=== PATIENT | female | born 1950 | race Caucasian/White ===

== ENCOUNTER → 2016-05-07 | Outpatient (CLI) | payer MEDICARE ==
--- NOTE | 2016-05-07 20:43 | WWHP ---
DATE OF SERVICE: 05/07/2016. CHIEF COMPLAINT: The patient is here for her routine gynecologic exam. HPI: This is a 65-year-old G6, P4-0-2-4 with an LMP of 1996. The patient is without gynecologic complaints. She denies any postmenopausal bleeding. It has been about 3 years since her last pelvic exam. PAST MEDICAL HISTORY: Right breast cancer diagnosed in 10/2015. She is status post lumpectomy with radiation treatment. She currently does not have a primary care physician. Her breast surgeon is Dr. Jaiden Swan. She sees an oncologist at [facility]. MEDICATIONS: 1. Arimidex generic 1 daily. 2. Also vitamin C. 3. Vitamin B complex. 4. Vitamin D3 daily. ALLERGIES: SULFA WHICH CAUSED A RASH. PAST SURGICAL HISTORY: Left breast biopsy years ago and a right breast biopsy 2015 and right breast lumpectomy in 2015. She also had a laparotomy in 1980 for a benign left pelvic tumor and her right tube was also removed at that time. Hand surgery and bladder suspension surgery in the past, colonoscopy multiple times and the last one was approximately in 2010. Past OB history: 4 vaginal deliveries and 2 spontaneous abortions. 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 She briefly took HRT just for a few days, but this was discontinued. She has no history of STDs. SOCIAL HISTORY: She quit smoking in 2015 and denies alcohol use. She occasionally smoked marijuana many years ago. She denies any drug use currently. She is and her is Ed. She has several grandchildren and I delivered one of them. FAMILY HISTORY: Aunt had colon cancer, father had cirrhosis of the liver and an WA. Mother of a CVA and aunt had an WA. She has no family history of breast cancer. REVIEW OF SYSTEMS: She believes she has gained about 8 pounds since her radiation treatment. She denies respiratory, cardiac, or GI problems. She denies maltreatment or falling. She denies any significant urinary leakage. PHYSICAL EXAM: Blood pressure 118/71. Height 5 feet 2 inches. Weight 184 pounds. Temperature 98.3, pulse 73. This a well-developed, heavyset white female who is alert and oriented x3 in no acute distress. HEENT is within normal limits. NECK: Supple without mass or thyromegaly. CHEST AND LUNGS: Clear to auscultation. HEART: Regular rate and rhythm. Breasts are without mass or discharge. There is a lumpectomy scar in the outer aspect of the right breast. No masses or tenderness. There is no nipple inversion. Axillary exam is negative for adenopathy. BACK: Negative for CVA tenderness. ABDOMEN: Soft, nontender, without palpable masses. PELVIC EXAM: External genitalia reveals mild atrophy without lesions. Cervix and vagina reveal mild atrophy without lesions. There is no evidence of prolapse. The uterus is midposition, nongravid size and nontender. There are no palpable adnexal masses or tenderness. Rectovaginal exam is negative for mass or tenderness and is negative for occult blood. EXTREMITIES: Nontender. IMPRESSION: 1. A 65-year-old menopausal female with normal gynecologic exam. 2. History of recent right breast cancer with no evidence of recurrence. PLAN: 1. Pap smear was performed. 2. Self-breast examination was discussed. 3. Mammogram will be done next few months. This will be done through her breast cancer surgeon as she has been doing. She will have a copy of her and mammograms sent to me. 4. Osteoporosis prevention was discussed. She states she had a normal bone density test done in 2006 and she is scheduled for another one in July. 5. She will follow up breast surgeon and oncologist regarding her breast cancer and for future testing. 6. She will return in one year.
== END | disposition home or self-care (01) ==
LOC: WWCWWP 09:49
PROVIDERS: ATTEND Obstetrics & Gynecology

== ENCOUNTER → 2016-08-21 | Outpatient (CLI) | payer MEDICARE ==
--- NOTE | 2016-08-22 09:25 | MM ---
Reason for exam: follow-up at short interval from prior study. Last mammogram was performed 10 months ago. History: Patient is postmenopausal and has history of breast cancer at age 65. Family history of breast cancer in maternal cousin at age 50. Lumpectomy of the right breast, December 18, 2015. Radiation therapy of the right breast, 2015. Excisional biopsy of the left breast, 1990. Benign excisional biopsy of the left breast, 1989. Benign excisional biopsy of the right breast, 1989. Taking antineoplastic for 1 year. Physical Findings: Nurse did not find any significant physical abnormalities on exam. MG 3D Diag Mammo W/Cad VIKAS Bilateral CC and MLO view(s) were taken. Prior study comparison: November 20, 2015, right breast US breast workup limited RT. November 01, 2015, bilateral MG 3d screening mammo w/cad. July 31, 2010, mammogram, performed at [facility]. The breast tissue is heterogeneously dense. This may lower the sensitivity of mammography. Finding #1: There is a new architectural distortion in the upper outer quadrant of the right breast. Finding #2: There are typically benign dystrophic, round calcifications in both breasts. New skin thickening in the right breast. Previous mammotome biopsy in the left breast. There is no new dominant lesion. These results were verbally communicated with the patient and result sheet given to the patient on 08/21/16. ASSESSMENT: Probably benign, BI-RAD 3 RECOMMENDATION: Follow-up diagnostic mammogram of both breasts in 6 months. 2 years from new cancer diagnosis.
== END | disposition home or self-care (01) ==
LOC: RADMAMWWP 08:41
PROVIDERS: ATTEND Internal Medicine
DX: R92.8 Other abnormal and inconclusive findings on diagnostic imaging of breast (principal); Z98.890 Other specified postprocedural states
CPT/HCPCS: G0204; G0279

== ENCOUNTER 2016-10-09 16:29 | Emergency (ER) | payer MEDICARE ==
[2016-10-09] MEDS ORDERED: SODIUM CHLORIDE 0.9% 1,000 ML IV ONE (17:28)
[2016-10-09] MEDS ORDERED: ONDANSETRON 4 MG/2 ML VIAL IVP STA (17:29)
[2016-10-09] MEDS ORDERED: ACETAMINOPHEN TAB 500 MG TAB PO STA (17:30)
--- NOTE | 2016-10-09 17:47 | ED ---
General Adult HPI - General Chief complaint: Nausea/Vomiting/Diarrhea Stated complaint: Shingles Time Seen by Provider: 10/09/16 17:09 Source: patient, RN notes reviewed Mode of arrival: ambulatory Limitations: no limitations - History of Present Illness Initial comments: Patient is a 66-year-old female presents to the emergency room for evaluation of shingles rash, headache and nausea. Patient states she was diagnosed with shingles on Friday. Patient states she began taking Valtrex. Patient states she has shingles on the right anterior ribs under her breasts. Patient states that since taking the Valtrex she's been having a 5 out of 10 headache with nausea. Patient states she's been unable to eat anything today. Patient states she was diagnosed with right breast cancer back in December. Patient states she went through 21 rounds of radiation and is now taking Arimidex daily for the next 5 years. Patient states she thinks she might be ALLERGIC to the Valtrex. Patient also states she noticed a red rash over her right breast while sitting here. Patient denies any pruritus or pain from the rash. Patient states this rash is different from her shingles rash. - Related Data Home Medications Medication Instructions Recorded Confirmed Anastrozole [Arimidex] 1 mg PO QAM 10/09/16 10/09/16 valACYclovir HCL [Valtrex] 1,000 mg PO Q8HR 10/09/16 10/09/16 Previous Rx's Medication Instructions Recorded Cephalexin [Keflex] 500 mg PO Q6HR 7 Days 10/09/16 Ibuprofen [Motrin] 600 mg PO Q6HR PRN #20 tab 10/09/16 Ondansetron Odt [Zofran Odt] 4 mg PO Q8HR PRN #12 tab 10/09/16 Allergies Allergy/AdvReac Type Severity Reaction Status Date / Time Sulfa (Sulfonamide Allergy Rash/Hives Verified 10/09/16 16:34 Antibiotics) Review of Systems ROS Statement: Those systems with pertinent positive or pertinent negative responses have been documented in the HPI. ROS Other: All systems not noted in ROS Statement are negative. Past Medical History Past Medical History: Cancer Additional Past Medical History / Comment(s): right breast cancer History of Any Multi-Drug Resistant Organisms: None Reported Past Surgical History: Breast Surgery Additional Past Surgical History / Comment(s): hip surgery, hemrrhoids Past Psychological History: No Psychological Hx Reported Smoking Status: Current some day smoker Past Alcohol Use History: None Reported Past Drug Use History: None Reported General Exam - General Exam Comments Initial Comments: Laying in exam room, no acute distress. Limitations: no limitations General appearance: alert, in no apparent distress Head exam: Present: atraumatic, normocephalic, normal inspection Eye exam: Present: normal appearance ENT exam: Present: normal exam Neck exam: Present: normal inspection Respiratory exam: Present: normal lung sounds bilaterally. Absent: respiratory distress Cardiovascular Exam: Present: regular rate, normal rhythm, normal heart sounds GI/Abdominal exam: Present: soft, normal bowel sounds. Absent: distended, tenderness, guarding, rebound, rigid Extremities exam: Present: normal inspection Back exam: Present: normal inspection Neurological exam: Present: alert, oriented X3, CN II-XII intact, normal gait Psychiatric exam: Present: normal affect, normal mood Skin exam: Present: other (Grouped vesicular lesions over right anterior chest wall inferior to the right breast. Blanchable erythema over her right breast.) Course Vital Signs 10/09/16 10/09/16 10/09/16 16:31 18:43 19:27 Temperature 97.8 F 98.3 F 98.5 F Pulse Rate 84 71 79 Respiratory 20 18 18 Rate Blood Pressure 146/88 130/75 137/62 O2 Sat by Pulse 96 95 99 Oximetry Medical Decision Making - Medical Decision Making Patient is a 66-year-old female presents emergency room for evaluation. Patient is having ALLERGIC reaction to Valtrex due to shingles. Patient is noted to have shingles rash over right anterior chest wall. Patient advised to continue taking Valtrex. Patient advised to take Tylenol for headache and Zofran for nausea. Patient also noted to have some blanchable erythema over her right breast. Place patient on Keflex to cover for any developing cellulitis. Advised patient to follow-up with either her oncologist or primary care provider for reevaluation. Patient states she understands everything that was discussed with her. Return parameters discussed. Case discussed with Dr. Wilkes. - Lab Data Result diagrams: 10/09/16 17:41 10/09/16 17:41 Lab Results 10/09/16 10/09/16 Range/Units 17:41 17:41 WBC 2.8 L (3.8-10.6) k/uL RBC 4.94 (3.80-5.40) m/uL Hgb 15.8 (11.4-16.0) gm/dL Hct 43.7 (34.0-46.0) % MCV 88.3 (80.0-100.0) fL MCH 32.0 (25.0-35.0) pg MCHC 36.3 (31.0-37.0) g/dL RDW 12.4 (11.5-15.5) % Plt Count 150 (150-450) k/uL Neutrophils % (Manual) 53.0 % Lymphocytes % (Manual) 33.0 % Monocytes % (Manual) 14.0 % Neutrophils # (Manual) 1.5 (1.3-7.7) k/uL Lymphocytes # (Manual) 0.9 L (1.0-4.8) k/uL Monocytes # (Manual) 0.4 (0-1.0) k/uL Nucleated RBCs 0 (0-0) /100 WBC Sodium 140 (137-145) mmol/L Potassium 4.2 (3.5-5.1) mmol/L Chloride 105 (98-107) mmol/L Carbon Dioxide 25 (22-30) mmol/L Anion Gap 10 mmol/L BUN 12 (7-17) mg/dL Creatinine 0.60 (0.52-1.04) mg/dL Est GFR (MDRD) Af Amer >60 (>60 ml/min/1.73 sqM) Est GFR (MDRD) Non-Af >60 (>60 ml/min/1.73 sqM) Glucose 120 H (74-99) mg/dL Calcium 9.3 (8.4-10.2) mg/dL Total Bilirubin 0.8 (0.2-1.3) mg/dL AST 28 (14-36) U/L ALT 33 (9-52) U/L Alkaline Phosphatase 66 (38-126) U/L Total Protein 7.1 (6.3-8.2) g/dL Albumin 3.9 (3.5-5.0) g/dL Amylase 44 (30-110) U/L Lipase 139 (23-300) U/L Disposition Clinical Impression: Shingles rash, Medication reaction, Cellulitis of right breast Disposition: HOME SELF-CARE Condition: Good Instructions: Shingles (ED) Additional Instructions: Continue taking Valtrex as directed. Take tylenol or motrin as needed for headache. Take Zofran as needed for nausea. Take antibiotics as directed. Please follow up with primary care provider or oncologist for reevaluation in 24 -48 hours. If symptoms worsen or new symptoms develop, return to the emergency room. Prescriptions: Cephalexin [Keflex] 500 mg PO Q6HR 7 Days Ibuprofen [Motrin] 600 mg PO Q6HR PRN #20 tab PRN Reason: Pain Ondansetron Odt [Zofran Odt] 4 mg PO Q8HR PRN #12 tab PRN Reason: Nausea Referrals: None,Stated [Primary Care Provider] - 1-2 days Time of Disposition: 19:09
[2016-10-09 18:11] LABS: ALT 33 U/L (9-52); AST 28 U/L (14-36); Alkaline Phosphatase 66 U/L (38-126); Amylase 44 U/L (30-110); Anion Gap 10 mmol/L; Blood Urea Nitrogen 12 mg/dL (7-17); Calcium 9.3 mg/dL (8.4-10.2); Carbon Dioxide 25 mmol/L (22-30); Chloride 105 mmol/L (98-107); Glucose 120 mg/dL (74-99); Non-African American GFR(MDRD) >60 (>60 ml/min/1.73 sqM); Potassium 4.2 mmol/L (3.5-5.1); Sodium 140 mmol/L (137-145); Total Bilirubin 0.8 mg/dL (0.2-1.3); Total Protein 7.1 g/dL (6.3-8.2)
[2016-10-09 18:29] LABS: Aty Lym Flag Slight; CH 31.3; CHCM 35.6; HCT 43.7 % (34.0-46.0); HDW 2.52; HGB 15.8 gm/dL (11.4-16.0); MCHC 36.3 g/dL (31.0-37.0); MCV 88.3 fL (80.0-100.0); Mean Platelet Volume 7.1; RBC 4.94 m/uL (3.80-5.40); RDW 12.4 % (11.5-15.5); WBC 2.8 k/uL (3.8-10.6); WBC (Perox) 2.92
[2016-10-09 18:44] VITALS: RESP 18
[2016-10-09] MEDS ORDERED: IBUPROFEN 600 MG TAB PO STA (19:08)
[2016-10-09] MEDS ORDERED: CEPHALEXIN 500 MG CAP PO STA (19:08)
[2016-10-09 19:14] LABS: Add Differential Manual Differential
[2016-10-09 19:18] LABS: Nucleated Red Blood Cells 0 /100 WBC (0-0); Total Cells Counted 100
[2016-10-09 19:28] VITALS: BP 137/62; PULSE 79; TEMP 98.5
== END 2016-10-09 19:33 | disposition home or self-care (01) ==
LOC: EC 16:29
DX: N61.0 Mastitis without abscess (principal); R11.2 Nausea with vomiting, unspecified; R51 Headache; T37.5X5A Adverse effect of antiviral drugs, initial encounter; B02.9 Zoster without complications; F17.200 Nicotine dependence, unspecified, uncomplicated; Z85.3 Personal history of malignant neoplasm of breast; Z79.899 Other long term (current) drug therapy; Z88.2 Allergy status to sulfonamides
CPT/HCPCS: 36415; 80053; 82150; 83690; 85025; 99284; 96374; 96361 ×2; J2405

== ENCOUNTER → 2017-04-08 | Outpatient (CLI) | payer MEDICARE ==
--- NOTE | 2017-04-09 08:19 | WWHP ---
[facility] - HISTORY AND PHYSICAL DATE OF SERVICE: 04/08/2017 CHIEF COMPLAINT: The patient is here for her routine gynecologic exam. HPI: This is a 66-year-old, G6, P4-0-2-4 with an LMP of 1996. The patient is without gynecologic complaints and denies any postmenopausal bleeding. She did have an abnormal Pap smear on 05/07/16, which showed ASCUS and was negative for high- risk HPV. PAST MEDICAL HISTORY: Right breast cancer diagnosed in 10/2015 and she is status post lumpectomy with radiation treatment. She denies any other health issues. MEDICATIONS: 1. Arimidex generic 1 daily. 2. Vitamin C supplement daily. 3. Vitamin B complex daily. 4. Vitamin D3 daily. ALLERGIES: SULFA which caused a rash. PAST SURGICAL HISTORY: Unchanged from the 05/07/2016 H&P. 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 She used HRT briefly, but this was discontinued. She has no history of STDs. SOCIAL HISTORY: She quit smoking in 2015 and denies alcohol use. She used marijuana many years ago, but denies any current drug use. She is and her is Ed. She has several grandchildren and I delivered one of them. FAMILY HISTORY: Unchanged from the 05/07/2016 H&P. REVIEW OF SYSTEMS: She has gained 4 pounds over the last year. She denies respiratory, cardiac, or GI problems. She denies maltreatment or falling. : She denies any significant problems with urinary leakage. PHYSICAL EXAM: Blood pressure 119/78, height 5 feet 2 inches, weight 188 pounds, BMI 34, temperature 97.8, pulse 74. This is a well-developed, well-nourished, white female, who is alert and oriented x3, in no acute distress. HEENT is within normal limits. NECK: Supple without thyromegaly. CHEST AND LUNGS: Clear to auscultation. HEART: Regular rate and rhythm. Breasts are without mass or discharge. Axillary exam is negative for adenopathy. ABDOMEN: Soft, nontender, without palpable masses. PELVIC EXAM: External genitalia reveals mild atrophy without lesions. Cervix and vagina reveal mild atrophy without lesions. There is no evidence of prolapse. The uterus is mid position,nongravid size and nontender. There are no palpable adnexal masses or tenderness. Rectovaginal exam is negative for mass or tenderness and is negative for occult blood. EXTREMITIES: Nontender. IMPRESSION: 1. A 66-year-old menopausal female with normal gynecologic exam. 2. History of ASCUS Pap smear with negative high-risk HPV testing 1 year ago. 3. History of right breast cancer with no evidence of recurrence. PLAN: 1. Pap smear was deferred. We will plan on repeating Pap smear with HPV co- testing in 1 to 2 years as per ACOG recommendations. 2. Self breast examination was discussed. 3. Mammogram was done last month and was benign. She will repeat this in 1 year. 4. Osteoporosis prevention was discussed. 5. I have recommended that she establish with a primary care physician and she states she will do this in the near future. 6. She will return in 1 year. MMNAELL / CHAUNCEYN: [id number] / MTDD
== END | disposition home or self-care (01) ==
LOC: CANPRECLI → WWCWWP 13:19
PROVIDERS: ATTEND Obstetrics & Gynecology
DX: Z53.9 Procedure and treatment not carried out, unspecified reason (principal)

== ENCOUNTER → 2018-07-22 | Outpatient (CLI) | payer MEDICARE ==
[2018-07-22 11:10] VITALS: BP 115/79; PULSE 71; RESP 16; TEMP 98.4; BMI 34.2
--- NOTE | 2018-07-22 12:05 | P.HPOB ---
History of Present Illness H&P Date: 07/22/18 Chief Complaint: The patient is here for her routine gynecologic exam. This is a 67-year-old with an LMP of 1996. The patient is without gynecologic complaints and denies any postmenopausal bleeding. Her last Pap smear done on 05/07/2016 showed ascus and was negative for high-risk HPV. Review of Systems She has lost 7 pounds over the last year. She denies respiratory, cardiac and G.I. problems. She denies maltreatment or problems with falling. : she denies any significant problems with urinary leakage. Past Medical History Past Medical History: Cancer Additional Past Medical History / Comment(s): right breast cancer 2016 s/p lumpectomy and radiation. Arthritis. 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 History of Any Multi-Drug Resistant Organisms: None Reported Past Surgical History: Breast Surgery Additional Past Surgical History / Comment(s): hip surgery, hemrrhoids. Right breast lumpectomy 2015. Multiple breast biopsies. Laparotomy for a benign left pelvic mass with right salpingectomy. Bladder suspension surgery, hand surgery. Colonoscopy 2008 (multiple in past). Past Psychological History: No Psychological Hx Reported Smoking Status: Current some day smoker Past Alcohol Use History: None Reported Past Drug Use History: Marijuana Additional Drug Use History / Comment(s): Marijuana use many years ago. Denies any drug use at this time. Additional History: Quit smoking in 2015. She is and her is Ed. - Past Family History Father Family Medical History: Liver Disease, Myocardial Infarction ([place]) Additional Family Medical History / Comment(s): Liver cirrhosis Mother Family Medical History: CVA/TIA Additional Family Medical History / Comment(s): An aunt had cancer. Medications and Allergies Home Medications Medication Instructions Recorded Confirmed Type Anastrozole [Arimidex] 1 mg PO QAM 10/09/16 07/22/18 History Multivit with Calcium,Iron,Min 1 each PO DAILY 07/22/18 07/22/18 History [Women's Multivitamin] Allergies Allergy/AdvReac Type Severity Reaction Status Date / Time Sulfa (Sulfonamide Allergy Rash/Hives Verified 07/22/18 11:03 Antibiotics) Exam Vital Signs Temp Pulse Resp BP Pulse Ox 07/22/18 11:06 98.4 F 71 16 115/79 96 Intake and Output 07/21/18 07/22/18 07/22/18 22:59 06:59 14:59 Other: Weight 82.1 kg Height 5'1", weight 181 pounds, BMI 34.2. This is a well-developed well-nourished heavyset white female who is alert and oriented times 3 in no acute distress. HEENT: Within normal limits. NECK: Supple without mass or thyromegaly. CHEST AND LUNGS: Clear to auscultation. HEART: Regular rate and rhythm. BREASTS: Are without mass or discharge. There is a slight dimpled area at the 8 o'clock position of the right breast consistent with her previous lumpectomy. AXILLARY EXAM: Negative for adenopathy. BACK: Negative for CVA tenderness. ABDOMEN: Soft, mildly obese, nontender, without palpable masses. PELVIC EXAM: external genitalia reveals a 3 mm benign appearing inclusion cyst at the posterior aspect of the left labia majora. The patient states she has felt this here for several months. It is not inflamed and nontender. External genitalia is otherwise unremarkable other than mild atrophy. Cervix and vagina appear normal with mild atrophy. There is no unusual discharge. There is no evidence of prolapse. The uterus is midposition, nongravid size and nontender. There are no palpable adnexal masses or tenderness. RECTAL EXAM: rectovaginal exam is negative for mass or tenderness and is negative for occult blood. EXTREMITIES: Nontender. IMPRESSION: 1. 67-year-old menopausal female with Small benign appearing left labial inclusion cyst and otherwise normal gynecologic exam. 2. History of ascus Pap smear with negative high-risk HPV testing on 05/07/16. PLAN: 1. Pap smear with high-risk HPV testing (cotest) was obtained. 2. Self breast awareness was discussed with the patient. 3. Diagnostic mammograms will continue to be done through her breast cancer doctor at [facility], Dr. Newman. She states her last mammogram was done in March 2018. 4. Osteoporosis prevention was discussed. I have stressed the importance of adequate calcium, vitamin D and regular exercise. Recommended amounts of calcium and vitamin D were also discussed. She states she is scheduled for a bone density test later this year done through Dr. Newman. She will try to have copies of her bone density tests and mammogram sent to me. 5. I have recommended screening colonoscopy since it is been nearly 10 years. She states she will look into doing this. She will also be looking into getting a new primary care physician. 6.She was advised to return in one year for her annual well woman exam.
== END ==
LOC: WWCWWP 10:23
PROVIDERS: ATTEND Obstetrics & Gynecology
DX: Z53.9 Procedure and treatment not carried out, unspecified reason (principal)

== ENCOUNTER 2018-09-24 10:02 | Emergency (ER) | payer MEDICARE ==
--- NOTE | 2018-09-24 11:04 | ED ---
Extremity Problem HPI - General Chief complaint: Extremity Problem,Nontraumatic Stated complaint: Back/Leg Pain Time Seen by Provider: 09/24/18 10:08 Source: patient, EMS Mode of arrival: EMS Limitations: no limitations - History of Present Illness Initial comments: 68-year-old female history of breast cancer status post lumpectomy radiation she states she is on current medication for breast cancer but states she has been in remission for the past 3 years. Patient denies any additional past medical history. Patient denies recent surgeries. Patient states that for the past day she has had low back pain with radiation down the left leg. She states her struggles with sciatica and she feels this is the cause. Patient denies any recent falls or trauma to the back shows fever chills night sweats history of IV drug use. Patient denies any noted weakness of the left leg. She states it is painful with range of motion. Patient states last night she was unable to get into a comfortable position secondary to the pain in the lumbar spine and radiating down the left posterior thigh to the knee. Patient denies loss of bowel control, urinary retention, or loss of sensation of the lower extremity. Patient states she did have one episode of incontinence to urine because she was not able to physically make it to the bathroom on time. She states it was due to being slow secondary to pain. Remaining ROS (-). Upon arrival patient appears well. She states since she took 2 tylenol #3 and motrin she has not had the pain. - Related Data Home Medications Medication Instructions Recorded Confirmed Anastrozole [Arimidex] 1 mg PO QAM 10/09/16 09/24/18 Multivit with Calcium,Iron,Min 1 tab PO DAILY 07/22/18 09/24/18 [Women's Multivitamin] Ascorbic Acid [Vitamin C] 500 mg PO DAILY 09/24/18 09/24/18 Calcium Carbonate [Calcium] 600 mg PO DAILY 09/24/18 09/24/18 Cholecalciferol (Vitamin D3) 2,000 unit PO DAILY 09/24/18 09/24/18 [Vitamin D3] Magnesium Oxide [Mag-Ox] 400 mg PO HS 09/24/18 09/24/18 Previous Rx's Medication Instructions Recorded Cephalexin [Keflex] 500 mg PO Q12HR 7 Days #14 cap 09/24/18 Allergies Allergy/AdvReac Type Severity Reaction Status Date / Time Sulfa (Sulfonamide Allergy Rash/Hives Verified 09/24/18 10:14 Antibiotics) Review of Systems ROS Statement: Those systems with pertinent positive or pertinent negative responses have been documented in the HPI. ROS Other: All systems not noted in ROS Statement are negative. Past Medical History Past Medical History: Cancer Additional Past Medical History / Comment(s): right breast cancer 2016 s/p bernie mpectomy and radiation. Arthritis. 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 History of Any Multi-Drug Resistant Organisms: None Reported Past Surgical History: Breast Surgery Additional Past Surgical History / Comment(s): hip surgery, hemrrhoids. Right breast lumpectomy 2016. Multiple breast biopsies. Laparotomy for a benign left pelvic mass with right salpingectomy. Bladder suspension surgery, hand surgery. Colonoscopy 2008 (multiple in past). Past Psychological History: No Psychological Hx Reported Smoking Status: Current some day smoker Past Alcohol Use History: None Reported Past Drug Use History: Marijuana - Past Family History Father Family Medical History: Liver Disease, Myocardial Infarction ([place]) Additional Family Medical History / Comment(s): Liver cirrhosis Mother Family Medical History: CVA/TIA Additional Family Medical History / Comment(s): An aunt had cancer. General Exam - General Exam Comments Initial Comments: General: The patient is awake and alert, in no distress, and does not appear acutely ill. Eye: Pupils are equal, round and reactive to light, extra-ocular movements are intact. No nystagmus. There is normal conjunctiva bilaterally. No signs of icterus. Ears, nose, mouth and throat: There are moist mucous membranes and no oral lesions. Neck: The neck is supple, there is no tenderness or JVD. Cardiovascular: There is a regular rate and rhythm. No murmur, rub or gallop is appreciated. Respiratory: Lungs are clear to auscultation, respirations are non-labored, breath sounds are equal. No wheezes, stridor, rales, or rhonchi. Gastrointestinal: Soft, non-distended, non-tender abdomen without masses or organomegaly noted. There is no rebound or guarding present. Musculoskeletal: Upon inspection of the cervical thoracic and lumbar spine there is no known after maladies. Patient has no tenderness midline to the thoracic or lumbar spine. Patient does have bilateral straight leg raise positive. With the left being more than the right. Patient has full sensation of the lower extremity bilaterally including the saddle region with 5/5 strength. Patient is somewhat hesitant to strength testing left leg secondary to pain Normal ROM, no tenderness. DP pulses equal bilaterally 2+. Neurological: A&O x 3. CN II-XII intact, There are no obvious motor or sensory deficits. Coordination appears grossly intact. Speech is normal. Skin: Skin is warm and dry and no rashes or lesions are noted. Psychiatric: Cooperative, appropriate mood & affect, normal judgment. Limitations: no limitations Course Vital Signs 09/24/18 09/24/18 10:13 12:15 Temperature 98.4 F 99.4 F Pulse Rate 90 89 Respiratory 16 18 Rate Blood Pressure 101/69 112/56 O2 Sat by Pulse 95 95 Oximetry Medical Decision Making - Medical Decision Making 68-year-old female presenting for sharp pain radiating down left leg and low back pain history of breast cancer. No midline pain or complaints fever, chills, nightsweats. CT obtained given patient history revealing stenosis and degenerative changes. She shows no signs of cauda equina on examination nor history taking. Patient able to ambulate to ambulate patient to the bathroom she is able to ambulate independently with a cane. Patient did have urinalysis obtained revealing a urinary tract infection. Treated with ceftriaxone the emergency Department patient be discharged with antibiotics and outpatient primary care follow-up. I recommended outpatient MRI and follow-up with orthopedic surgery. Patient prefers discharge at this time. She states her pain is controlled. I discussed the case and reviewed imaging studies my attending provider Dr. Hawkins was agreeable care plan and discharge at this time. I recommended patient obtain records to review with primary care provider and go over incidental findings and ensure proper follow-up. Patient verbalized understanding and was discharged appearing well, after discussing return parameters. - Lab Data Result diagrams: 09/24/18 10:58 09/24/18 10:58 Lab Results 09/24/18 09/24/18 09/24/18 Range/Units 10:58 10:58 10:58 WBC 10.7 H (3.8-10.6) k/uL RBC 4.72 (3.80-5.40) m/uL Hgb 14.3 (11.4-16.0) gm/dL Hct 42.6 (34.0-46.0) % MCV 90.3 (80.0-100.0) fL MCH 30.2 (25.0-35.0) pg MCHC 33.4 (31.0-37.0) g/dL RDW 13.6 (11.5-15.5) % Plt Count 154 (150-450) k/uL Neutrophils % 88 % Lymphocytes % 5 % Monocytes % 4 % Eosinophils % 1 % Basophils % 0 % Neutrophils # 9.4 H (1.3-7.7) k/uL Lymphocytes # 0.6 L (1.0-4.8) k/uL Monocytes # 0.5 (0-1.0) k/uL Eosinophils # 0.1 (0-0.7) k/uL Basophils # 0.0 (0-0.2) k/uL PT (9.0-12.0) sec INR (<1.2) APTT (22.0-30.0) sec Sodium 137 (137-145) mmol/L Potassium 3.9 (3.5-5.1) mmol/L Chloride 106 (98-107) mmol/L Carbon Dioxide 24 (22-30) mmol/L Anion Gap 7 mmol/L BUN 22 H (7-17) mg/dL Creatinine 0.73 (0.52-1.04) mg/dL Est GFR (CKD-EPI)AfAm >90 (>60 ml/min/1.73 sqM) Est GFR (CKD-EPI)NonAf 84 (>60 ml/min/1.73 sqM) Glucose 139 H (74-99) mg/dL Plasma Lactic Acid Candido 1.5 (0.7-2.0) mmol/L Calcium 8.8 (8.4-10.2) mg/dL Total Bilirubin 1.1 (0.2-1.3) mg/dL AST 24 (14-36) U/L ALT 21 (9-52) U/L Alkaline Phosphatase 66 (38-126) U/L Total Protein 6.9 (6.3-8.2) g/dL Albumin 3.5 (3.5-5.0) g/dL Urine Color Urine Appearance (Clear) Urine pH (5.0-8.0) Ur Specific Stark (1.001-1.035) Urine Protein (Negative) Urine Glucose (UA) (Negative) Urine Ketones (Negative) Urine Blood (Negative) Urine Nitrite (Negative) Urine Bilirubin (Negative) Urine Urobilinogen (<2.0) mg/dL Ur Leukocyte Esterase (Negative) Urine RBC (0-5) /hpf Urine WBC (0-5) /hpf Ur Squamous Epith Cells (0-4) /hpf Urine Bacteria (None) /hpf Urine Mucus (None) /hpf 09/24/18 09/24/18 Range/Units 10:58 10:58 WBC (3.8-10.6) k/uL RBC (3.80-5.40) m/uL Hgb (11.4-16.0) gm/dL Hct (34.0-46.0) % MCV (80.0-100.0) fL MCH (25.0-35.0) pg MCHC (31.0-37.0) g/dL RDW (11.5-15.5) % Plt Count (150-450) k/uL Neutrophils % % Lymphocytes % % Monocytes % % Eosinophils % % Basophils % % Neutrophils # (1.3-7.7) k/uL Lymphocytes # (1.0-4.8) k/uL Monocytes # (0-1.0) k/uL Eosinophils # (0-0.7) k/uL Basophils # (0-0.2) k/uL PT 10.9 (9.0-12.0) sec INR 1.0 (<1.2) APTT 23.1 (22.0-30.0) sec Sodium (137-145) mmol/L Potassium (3.5-5.1) mmol/L Chloride (98-107) mmol/L Carbon Dioxide (22-30) mmol/L Anion Gap mmol/L BUN (7-17) mg/dL Creatinine (0.52-1.04) mg/dL Est GFR (CKD-EPI)AfAm (>60 ml/min/1.73 sqM) Est GFR (CKD-EPI)NonAf (>60 ml/min/1.73 sqM) Glucose (74-99) mg/dL Plasma Lactic Acid Candido (0.7-2.0) mmol/L Calcium (8.4-10.2) mg/dL Total Bilirubin (0.2-1.3) mg/dL AST (14-36) U/L ALT (9-52) U/L Alkaline Phosphatase (38-126) U/L Total Protein (6.3-8.2) g/dL Albumin (3.5-5.0) g/dL Urine Color Yellow Urine Appearance Cloudy H (Clear) Urine pH 5.5 (5.0-8.0) Ur Specific Stark 1.026 (1.001-1.035) Urine Protein Trace H (Negative) Urine Glucose (UA) Negative (Negative) Urine Ketones Negative (Negative) Urine Blood Small H (Negative) Urine Nitrite Positive H (Negative) Urine Bilirubin Negative (Negative) Urine Urobilinogen <2.0 (<2.0) mg/dL Ur Leukocyte Esterase Large H (Negative) Urine RBC 1 (0-5) /hpf Urine WBC 83 H (0-5) /hpf Ur Squamous Epith Cells 2 (0-4) /hpf Urine Bacteria Many H (None) /hpf Urine Mucus Many H (None) /hpf Disposition Clinical Impression: UTI (urinary tract infection), Low back pain, Radiculopathy Disposition: HOME SELF-CARE Condition: Good Instructions (If sedation given, give patient instructions): Urinary Tract Infection in Women (ED), Lumbar Spinal Stenosis (ED) Additional Instructions: Please use medication as discussed. Please follow-up with family doctor in the next 2 days, please follow-up with Dr. Wang as discussed--recommend outpatient MRI. Please return to emergency room if the symptoms increase or worsen or for any other concerns-including loss of bowel bladder control loss sensation of the legs increasing pain and inability ambulate, fever. Prescriptions: Cephalexin [Keflex] 500 mg PO Q12HR 7 Days #14 cap Is patient prescribed a controlled substance at d/c from ED?: No Referrals: None,Stated [Primary Care Provider] - 1-2 days Martha Hill MD [STAFF PHYSICIAN] - 1-2 days Jaswant Abbott MD [Medical Doctor] - 1-2 days Elli Wang DO [Doctor of Osteopathic Medicine] - 1-2 days Time of Disposition: 12:54
[2018-09-24 11:14] LABS: Basophils % (A) 0 %; Eosinophils # (A) 0.1 k/uL (0-0.7); Eosinophils % (A) 1 %; HCT 42.6 % (34.0-46.0); HGB 14.3 gm/dL (11.4-16.0); Lymphocytes # (A) 0.6 k/uL (1.0-4.8); Lymphocytes % (A) 5 %; MCH 30.2 pg (25.0-35.0); MCHC 33.4 g/dL (31.0-37.0); MCV 90.3 fL (80.0-100.0); Mean Platelet Volume 7.1; Monocytes # (A) 0.5 k/uL (0-1.0); Monocytes % (A) 4 %; Neutrophils # (A) 9.4 k/uL (1.3-7.7); Neutrophils % (A) 88 %; Platelet Count 154 k/uL (150-450); RBC 4.72 m/uL (3.80-5.40); RDW 13.6 % (11.5-15.5); WBC 10.7 k/uL (3.8-10.6)
[2018-09-24 11:23] LABS: ALT 21 U/L (9-52); AST 24 U/L (14-36); African American GFR (CKD) >90 (>60 ml/min/1.73 sqM); Albumin 3.5 g/dL (3.5-5.0); Alkaline Phosphatase 66 U/L (38-126); Anion Gap 7 mmol/L; Blood Urea Nitrogen 22 mg/dL (7-17); Calcium 8.8 mg/dL (8.4-10.2); Carbon Dioxide 24 mmol/L (22-30); Chloride 106 mmol/L (98-107); Glucose 139 mg/dL (74-99); Potassium 3.9 mmol/L (3.5-5.1); Sodium 137 mmol/L (137-145); Total Bilirubin 1.1 mg/dL (0.2-1.3); Total Protein 6.9 g/dL (6.3-8.2)
[2018-09-24 11:32] LABS: Partial Thromboplastin Time 23.1 sec (22.0-30.0); Prothrombin Time 10.9 sec (9.0-12.0)
--- NOTE | 2018-09-24 11:34 | XR ---
EXAMINATION TYPE: AP view pelvis and 2 views left hip DATE OF EXAM: 09/24/2018 COMPARISON: NONE HISTORY: 68-year-old female left hip and groin pain FINDINGS: Degenerative changes lower lumbar spine. Subarticular sclerosis at the SI joint suggesting degenerati ve change. Partially visualized right total hip arthroplasty. Regarding the left hip total arthroplas ty, both the acetabular cup and femoral stem components are well seated. No periprosthetic fracture o r apparent loosening. IMPRESSION: Bilateral total hip arthroplasties. No evidence of complication of the left hip total arthroplasty. N o acute osseous abnormality seen.
--- NOTE | 2018-09-24 12:10 | CT ---
EXAMINATION TYPE: CT lumbar spine w con DATE OF EXAM: 09/24/2018 COMPARISON: None HISTORY: Low back pain with radiation to the left thigh and buttcocks CT DLP: 1062 mGycm Automated exposure control for dose reduction was used. CONTRAST: CT scan of the lumbar is performed with IV Contrast, patient injected with 100 mL of Isovue 300. Enhanced CT of the lumbar spine was performed. Bone and soft tissue window settings are submitted as well as coronal and sagittal reconstructions. There is a vacuum disc phenomenon at multiple levels. There is severe multilevel degenerative disc di sease and facet arthropathy with multilevel foraminal encroachment. No acute fracture. Curvature the spine suggestive of scoliosis. Aorta demonstrates atherosclerotic changes. Assessment spinal canal limited due to resolution by CT s can. There appears to be multilevel disc bulging and canal stenosis primarily involving levels L3-S1. MRI recommended. No destructive bony lesions. If there is concern for early metastasis MRI would be required. There is a hiatal hernia. Postsurgical changes involving the hips. Interspinous arthropathy correlate for [place]'s disease. Sh otty adenopathy in the retroperitoneum noted. IMPRESSION: 1. Scoliosis with severe multilevel degenerative disc disease. No acute fracture. There is multilevel significant canal stenosis and foraminal encroachment. MRI recommended. 2. No destructive bony lesions. If there is concern for early bony metastasis MRI would be required.
[2018-09-24 12:11] LABS: Appearance,Urine Cloudy (Clear); Bacteria,Urine Many /hpf; Bilirubin,Urine Negative (Negative); Blood,Urine Small (Negative); Color,Urine Yellow; Glucose,Urine (UA) Negative (Negative); Ketones,Urine Negative (Negative); Leukocyte Esterase,Urine Large (Negative); Mucus,Urine Many /hpf; Nitrite,Urine Positive (Negative); PH, Urine 5.5 (5.0-8.0); Protein,Urine Trace (Negative); RBC,Urine 1 /hpf (0-5); Specific Gravity,Urine 1.026 (1.001-1.035); Squamous Epithelial Cell,Urine 2 /hpf (0-4); Urobilinogen,Urine <2.0 mg/dL (<2.0); WBC,Urine 83 /hpf (0-5)
[2018-09-24] MEDS ORDERED: CEPHALEXIN 500MG STARTER PACK 4 CAP BTL PO STA (12:39)
[2018-09-24 12:54] VITALS: BP 112/56; PULSE 89; RESP 18; TEMP 99.4
[2018-09-24] MEDS ORDERED: ACET/COD 300 MG/30 MG STARTER PACK 6 TAB BTL PO STA (12:55)
== END 2018-09-24 13:10 | disposition home or self-care (01) ==
LOC: EC 10:02
DX: M54.16 Radiculopathy, lumbar region (principal); N39.0 Urinary tract infection, site not specified; M48.061 Spinal stenosis, lumbar region without neurogenic claudication; M51.36 Other intervertebral disc degeneration, lumbar region; F17.200 Nicotine dependence, unspecified, uncomplicated; Z79.899 Other long term (current) drug therapy; Z85.3 Personal history of malignant neoplasm of breast; Z96.643 Presence of artificial hip joint, bilateral
CPT/HCPCS: 36415; 80053; 83605; 85025; 85610; 85730; 81001; 73502; 72132; 99284; Q9967

== ENCOUNTER 2021-04-05 07:40 | Day surgery (SDC) | payer MEDICARE, OTHER ==
[2021-03-20 15:44] VITALS: BMI 31.9
--- NOTE | 2021-03-21 07:37 | P.GSHP ---
History of Present Illness H&P Date: 03/21/21 Chief Complaint: Abdominal and flank pain The patient is a 70-year-old white female with no history of urolithiasis. She presented last week with abdominal pain radiating to the left flank, associated with chills, nausea, and vomiting. CT scan showed mild left hydronephrosis due to a 5 mm left proximal ureteral calculus. She was found to have an enterococcus UTI as well. She underwent left ureteral stent insertion on 03/16/2021 and has been treated with antibiotics. She now comes for cystoscopy, left ureteral stent removal, left ureteroscopy with Holmium laser lithotripsy and/or stone basketing. At the time of stent placement, she was also found to h ave bladder calculi, and cystoscopy lithotripsy will be performed. - Constitutional Constitutional: Reports chills - Gastrointestinal Gastrointestinal: Reports nausea, Reports vomiting - Genitourinary (Female) Genitourinary: Reports flank pain, Reports kidney stones Past Medical History Past Medical History: Cancer Additional Past Medical History / Comment(s): right breast cancer 2016 - (lumpectomy and radiation). "low blood pressure", red areas on buttocks from previous open wounds, currently on Rx for UTI. History of Any Multi-Drug Resistant Organisms: MRSA Date of last positivie culture/infection: 2018 MDRO Source:: left hip Past Surgical History: Bladder Surgery, Breast Surgery, Joint Replacement, Orthopedic Surgery Additional Past Surgical History / Comment(s): hemorrhoidectomy x 3. Right breast lumpectomy 2016. Multiple breast biopsies. Laparotomy for a benign left pelvic mass with right salpingectomy. Bladder suspension surgery, nails removed emily great toes, emily hip replacement(left hip hardware removed), ganglion cyst removed left hand, emily cataract, laser surgery left eye x 3 and rt eye x 1, , tumor removed from nipple area of left breast, colonoscopy x 5 Past Anesthesia/Blood Transfusion Reactions: No Reported Reaction Smoking Status: Former smoker - Past Family History Father Family Medical History: Myocardial Infarction ([place]) Additional Family Medical History / Comment(s): Liver cirrhosis Mother Family Medical History: CVA/TIA Additional Family Medical History / Comment(s): . Medications and Allergies Home Medications Medication Instructions Recorded Confirmed Type Multivit with Calcium,Iron,Min 1 tab PO DAILY 07/22/18 03/20/21 History [Women's Multivitamin] Ascorbic Acid [Vitamin C] 500 mg PO DAILY 09/24/18 03/20/21 History Calcium Carbonate [Calcium] 600 mg PO DAILY 09/24/18 03/20/21 History Cholecalciferol (Vitamin D3) 2,000 unit PO DAILY 09/24/18 03/20/21 History [Vitamin D3] Magnesium Oxide [Mag-Ox] 400 mg PO HS 09/24/18 03/20/21 History Acetaminophen [Tylenol] 500 mg PO Q4-6H PRN 03/20/21 03/20/21 History Ciprofloxacin [Cipro Susp] 500 mg PO Q12HR 03/20/21 03/20/21 History Potassium Chloride [Klor-Con 10 ER] 10 meq PO DAILY 03/20/21 03/20/21 History Allergies Allergy/AdvReac Type Severity Reaction Status Date / Time Sulfa (Sulfonamide Allergy Rash/Hives/ Verified 03/20/21 15:28 Antibiotics) fever Surgical - Exam - General well developed, well nourished, no distress - Respiratory normal respiratory effort - Abdomen Abdomen: soft, non tender, no guarding, no rigid, no rebound - Genitourinary normal external genitalia, normal perineum, no perineal/vulvar lesions - Psychiatric oriented to time, oriented to person, oriented to place, speech is normal, memory intact Results - Imaging CT scan - abdomen: report reviewed, image reviewed Assessment and Plan (1) Calculus in bladder Status: Acute Code(s): N21.0 - CALCULUS IN BLADDER SNOMED Code(s): 91994228 (2) Calculus of ureter Status: Acute Code(s): N20.1 - CALCULUS OF URETER SNOMED Code(s): 25365294 Plan: Cystoscopy, cystolithotripsy, left ureteral stent removal, left ureteroscopy with Holmium laser lithotripsy and/or stone basketing. The procedure has been reviewed in detail with the patient and her son. They are aware of potential risks, which include anesthesia, bleeding, infection, and ureteral injury.
[~2021-04-05 07:40] MED LIST: AMPICILLIN 2,000 MG in SODIUM CHLORIDE 0.9% 100 ML IVPB PRN; DEXAMETHASONE SOD PHOSPHATE 4 MG/ML 1 ML VIAL IV ONE; GENTAMICIN 90 MG in SODIUM CHLORIDE 0.9% 100 ML IVPB PRN; HYDROmorphone 0.5 MG/0.5 ML SYRINGE IVP PRN; LACTATED RINGERS 1,000 ML IV SCH; LIDOCAINE 1% (10MG/ML) FOR IV START INTRADERMA PRN; MIDAZOLAM 2 MG/2 ML VIAL IV PRN; ONDANSETRON 4 MG/2 ML VIAL IVP ONE
--- NOTE | 2021-04-05 08:24 | XR ---
EXAMINATION TYPE: XR KUB DATE OF EXAM: 04/05/2021 Comparison: None Clinical History: 70-year-old female kidney stones Findings: Nonobstructive bowel gas pattern. Mild stool in the right side of the colon. Bilateral hip arthroplas ties, possible cemented femoral component on the left. Left-sided ureteral stent in place. There is a 6 mm calcification along the distal aspect of the stent in the lower left pelvis that could represen t a phlebolith or distal ureteral calculus. Additional pelvic phlebolith are noted. Degenerated levoc onvex curvature of the lumbar spine. Impression: A left-sided ureteral stent. 6 mm calcification in the lower left pelvis along the course of the dist al stent could be a distal ureteral calculus or pelvic phlebolith. Clinically correlate.
[2021-04-05] MEDS ORDERED: NEOSTIGMINE 1 MG/ML 10 ML VIAL ONE (09:50)
[2021-04-05] MEDS ORDERED: MIDAZOLAM 2 MG/2 ML VIAL ONE (09:50)
[2021-04-05] MEDS ORDERED: PROPOFOL 10 MG/ML 20 ML VIAL IV ONE (09:50)
[2021-04-05] MEDS ORDERED: GLYCOPYRROLATE 0.2 MG/ML 2 ML VIAL ONE (09:50)
[2021-04-05] MEDS ORDERED: LIDOCAINE 1% INJ 10MG/ML (20 ML MDV) ONE (09:50)
[2021-04-05] MEDS ORDERED: KETOROLAC 15 MG/ML 1 ML VIAL ONE (09:50)
[2021-04-05] MEDS ORDERED: PHENYLEPHRINE-0.9% NACL SYG 1,000 MCG/10 ML SYRINGE ONE (09:50)
[2021-04-05] MEDS ORDERED: fentaNYL (PF) 50 MCG/ML 2 ML AMP ONE (09:50)
[2021-04-05] MEDS ORDERED: ROCURONIUM 10 MG/ML (5 ML VIAL) IV ONE (09:50)
--- NOTE | 2021-04-05 11:16 | FL ---
Fluoroscopy History: BLADDER CALCULI renal calculi left side 17 sec fl time used
[2021-04-05 11:21] VITALS: TEMP 97
--- NOTE | 2021-04-05 11:21 | P.OP ---
Date of Procedure: 04/05/21 Preoperative Diagnosis: Bladder calculi, left ureteral calculus Postoperative Diagnosis: Same Procedure(s) Performed: Cystoscopy, left ureteral stent removal, left ureteroscopy with Holmium laser lithotripsy and stone basketing, cystolithotripsy Anesthesia: LOS Surgeon: Arash Mcneil Estimated Blood Loss (ml): 0 IV fluids (ml): 300 Pathology: none sent Condition: stable Disposition: PACU Indications for Procedure: The patient is a 70-year-old white female with no history of urolithiasis. She presented last week with abdominal pain radiating to the left flank, associated with chills, nausea, and vomiting. CT scan showed mild left hydronephrosis due to a 5 mm left proximal ureteral calculus. She was found to have an enterococcus UTI as well. She underwent left ureteral stent insertion on 03/16/2021 and has been treated with antibiotics. She now comes for cystoscopy, left ureteral stent removal, left ureteroscopy with Holmium laser lithotripsy and/or stone basketing. At the time of stent placement, she was also found to have bladder calculi, and cystoscopy lithotripsy will be performed. Operative Findings: Left mid ureteral calculus, fragmented and removed completely. Multiple bladder calculi, fragmented and removed completely. Description of Procedure: The patient was taken to the operating room and placed in the dorsolithotomy position, with legs supported in Lalo stirrups. Particular attention was paid to the positioning of the patient's left leg, which was left straight in view of her hip disorder. The external genitalia was prepped and draped sterilely. The 30 lens was used to introduce the 21-[place] Uriarte cystoscopic sheath through the urethra and into the bladder under direct vision. The bladder was examined in its entirety. The right ureteral orifice appeared normal. Approximately 5 calculi measuring up to 1.5 cm in size were seen. There were no tumors. The distal end of the left ureteral stent was grasped with grasping forceps and removed along with the cystoscope. The Uriarte semirigid ureteroscope was advanced into the bladder, and the left ureteral orifice was cannulated. The ureteroscope was advanced up to the calculus, which was located at the level of the mid ureter. The 272 micron Holmium laser probe was passed through the ureteroscope, and lithotripsy was performed. After fragmenting the calculus, calculus fragments were removed using a 1.9-[place]an nitinol basket. All calculus fragments were removed, and there was no evidence of ureteral trauma. The cystoscope was replaced and the bladder. The Holmium laser probe was passed through the cystoscope, and the bladder calculi were fragmented. All calculus fragments were removed from the bladder. There was no evidence of bladder perforation. The bladder was emptied and the cystoscope removed. The patient tolerated the procedure well and was taken to the recovery room in stable condition. [facility] Report: Procedure Acuity: Elective Stone Size and Location: 5 mm, left mid ureter Ureteral Dilation: No Ureteral Access Sheath Used: No Stone Sent for Analysis: Yes All Stones/Fragments Were Removed with a Basket: Yes Complications: No Preoperative Antibiotics Given: Yes Stent Placed: No Discharge Medications: None
[2021-04-05 12:23] VITALS: RESP 20
[2021-04-05 12:42] VITALS: BP 110/70; PULSE 104
== END 2021-04-05 13:39 | disposition home or self-care (01) ==
LOC: OR 07:40
PROVIDERS: ATTEND Urology
DX: N21.0 Calculus in bladder (principal); N20.1 Calculus of ureter; Z85.3 Personal history of malignant neoplasm of breast; Z86.14 Personal history of Methicillin resistant Staphylococcus aureus infection; Z96.643 Presence of artificial hip joint, bilateral; Z98.42 Cataract extraction status, left eye; Z98.41 Cataract extraction status, right eye; Z90.79 Acquired absence of other genital organ(s); Z98.890 Other specified postprocedural states; Z87.891 Personal history of nicotine dependence; Z83.79 Family history of other diseases of the digestive system; Z82.49 Family history of ischemic heart disease and other diseases of the circulatory system; Z82.3 Family history of stroke; Z79.899 Other long term (current) drug therapy; Z88.2 Allergy status to sulfonamides
CPT/HCPCS: 52318; 52353; 84132; 82365; 74018; C1758; J2250; J1100; J2710; J2405; J2001; J3010; J0290; J1885; J2370; J2704